=== PATIENT | female | born 1995 | race Caucasian/White ===

== ENCOUNTER 2018-05-05 16:49 | Emergency (ER) | payer OTHER ==
[~2018-05-05] VITALS: Ht 177.8 cm; Wt 142.7 kg
[2018-05-05 16:55] VITALS: BP 130/83
[2018-05-05] MEDS ORDERED: HYDROcodone/APAP 5/325 TABLET PO ONE (18:00)
[2018-05-05] MEDS ORDERED: HYDROcodone/APAP 5/325 TABLET ONE (18:06)
== END 2018-05-05 19:09 | disposition home or self-care (01) ==
LOC: ED 17:52
DX: K08.89 Other specified disorders of teeth and supporting structures (principal)
CPT/HCPCS: 99283